=== PATIENT | female | born 1995 | race Caucasian/White ===

== ENCOUNTER 2016-10-20 21:42 | Emergency (ER) | payer OTHER ==
[~2016-10-20] VITALS: Ht 154.9 cm; Wt 60.0 kg
[2016-10-20 21:45] VITALS: BP 117/71; PULSE 82; RESP 14; TEMP 98; O2SAT 98
--- NOTE | 2016-10-21 23:47 | EKG ---
Date Performed: 10/20/2016 Time Performed: 22:41:40 PTAGE: 21 years EKG: Sinus rhythm WITH SINUS ARRHYTHMIA NORMAL ECG NO PREVIOUS TRACING DOCTOR: Lyndon Gregory Interpretating Date/Time 10/21/2016 23:45:33
== END 2016-10-21 01:30 | disposition left against medical advice (07) ==
LOC: NED 21:42
DX: R07.9 Chest pain, unspecified (principal); I49.8 Other specified cardiac arrhythmias
CPT/HCPCS: 93005; 99281